=== PATIENT | male | born 1955 | race African-American/Black ===

== ENCOUNTER 2017-02-04 06:20 | Emergency (ER) | payer MEDICARE, MEDICAID ==
[2017-02-04] MEDS ORDERED: Ibuprofen 800 MG TAB ONE (07:07)
--- NOTE | 2017-02-04 07:54 | RAD ---
CHEST PA AND LATERAL 2 VIEWS: Date: 02/04/17 HISTORY: 61-year-old male with cough. COMPARISON: 01/16/16. FINDINGS: Heart size is normal. The lungs are clear. IMPRESSION: No acute intrathoracic disease. POS: OFF
== END 2017-02-04 08:32 | disposition home or self-care (01) ==
LOC: ERS 06:20
DX: J40 Bronchitis, not specified as acute or chronic (principal); K08.89 Other specified disorders of teeth and supporting structures; E11.9 Type 2 diabetes mellitus without complications; I10 Essential (primary) hypertension; E78.00 Pure hypercholesterolemia, unspecified
CPT/HCPCS: 71020; 93005

== ENCOUNTER 2017-09-14 10:16 | Emergency (ER) | payer MEDICARE, MEDICAID | END 2017-09-14 10:41 | disposition home or self-care (01) | LOC: ERS 10:16 | DX: K08.89 Other specified disorders of teeth and supporting structures (principal); I10 Essential (primary) hypertension; E11.9 Type 2 diabetes mellitus without complications; E78.00 Pure hypercholesterolemia, unspecified | CPT/HCPCS: 99282 ==

== ENCOUNTER 2018-04-18 18:34 | Emergency (ER) | payer MEDICARE, MEDICAID ==
[2018-04-18] MEDS ORDERED: Cyclobenzaprine 10 MG TAB ONE (18:50)
== END 2018-04-18 18:54 | disposition home or self-care (01) ==
LOC: ERS 18:34
DX: S16.1XXA Strain of muscle, fascia and tendon at neck level, initial encounter (principal); E11.9 Type 2 diabetes mellitus without complications; I10 Essential (primary) hypertension; E78.00 Pure hypercholesterolemia, unspecified; X58.XXXA Exposure to other specified factors, initial encounter
CPT/HCPCS: 99283

== ENCOUNTER 2020-03-10 10:41 | Emergency (ER) | payer MEDICARE, MEDICAID ==
[2020-03-10] MEDS ORDERED: Hydrocortisone 1% Cream 30 GM TUBE TOP SCH (12:45)
[2020-03-10] MEDS ORDERED: Proctozone-HC 30 GM TUBE TOP SCH (13:30)
== END 2020-03-10 13:38 | disposition home or self-care (01) ==
LOC: ERS 10:41
DX: K64.4 Residual hemorrhoidal skin tags (principal); E11.9 Type 2 diabetes mellitus without complications; E78.00 Pure hypercholesterolemia, unspecified; I10 Essential (primary) hypertension; Z79.82 Long term (current) use of aspirin; Z79.84 Long term (current) use of oral hypoglycemic drugs; Z79.899 Other long term (current) drug therapy
CPT/HCPCS: 99283

== ENCOUNTER 2020-07-01 10:17 | Outpatient (CLI) | payer MEDICARE, MEDICAID | END 2020-07-01 10:18 | disposition home or self-care (01) | LOC: EKG 10:17 → RAD 10:18 | PROVIDERS: ATTEND Nurse Practitioner Family | DX: I10 Essential (primary) hypertension (principal); M25.50 Pain in unspecified joint; M54.5 Low back pain; E66.8 Other obesity; E87.2 Acidosis; G40.802 Other epilepsy, not intractable, without status epilepticus; Z68.27 Body mass index [BMI] 27.0-27.9, adult; E11.9 Type 2 diabetes mellitus without complications; K59.04 Chronic idiopathic constipation; M19.90 Unspecified osteoarthritis, unspecified site | CPT/HCPCS: 71046; 93005; 93010 ==

== ENCOUNTER 2021-11-23 09:39 | Outpatient (CLI) | payer MEDICARE, MEDICAID | END 2021-11-23 09:40 | disposition home or self-care (01) | LOC: RAD-FRANK 09:39 | PROVIDERS: ATTEND Nurse Practitioner Family | DX: S69.92XA Unspecified injury of left wrist, hand and finger(s), initial encounter (principal) ==

== ENCOUNTER 2024-09-24 15:51 | Emergency (ER) | payer MEDICARE, MEDICAID | END 2024-09-24 17:13 | disposition home or self-care (01) | LOC: ERS 15:51 | DX: K62.3 Rectal prolapse (principal); E11.9 Type 2 diabetes mellitus without complications; I10 Essential (primary) hypertension | CPT/HCPCS: 99282 ==

== ENCOUNTER 2025-01-14 14:59 | Emergency (ER) | payer MEDICARE, MEDICAID | END 2025-01-14 16:20 | disposition home or self-care (01) | LOC: ERS 14:59 | DX: K08.89 Other specified disorders of teeth and supporting structures (principal); E11.9 Type 2 diabetes mellitus without complications; E78.00 Pure hypercholesterolemia, unspecified; I10 Essential (primary) hypertension; Z79.899 Other long term (current) drug therapy; Z79.84 Long term (current) use of oral hypoglycemic drugs; Z79.82 Long term (current) use of aspirin | CPT/HCPCS: 96372; 99282 ==